=== PATIENT | female | born 1975 | race Caucasian/White ===

== ENCOUNTER → 2017-10-18 | Day surgery (SDC) | payer MEDICAID ==
[~2017-10-18] VITALS: Ht 157.5 cm; Wt 84.5 kg
[~2017-10-18] MED LIST: ACETAMINOPHEN/HYDROcodone 325 MG/5 MG TAB PO PRN; CHLORHEXIDINE GLUCONATE 2 % 1 PACK (2 CLOTHS) TOPICAL PRN; CHLORHEXIDINE GLUCONATE 4% SOLN 120 ML BTL TOPICAL SCH; DEXAMETHASONE SOD PHOS 4 MG/ML VIAL IV ONE; HYDROmorphone HCL PF 2 MG/ML VIAL ONE; KETOROLAC TROMETHAMINE 30 MG/ML (IVP) VIAL IM PRN; KETOROLAC TROMETHAMINE 30 MG/ML (IVP) VIAL IV PUSH ONE; LACTATED RINGER'S 1000 ML IV PRN; LIDOCAINE HCL 1% PF 5 ML SYRINGE OTHER ONE; METOPROLOL TARTRATE 25 MG TAB PO PRN; MORPHINE SULFATE 8 MG/ML INJ ONE; ONDANSETRON HCL 4 MG/2 ML VIAL IV PUSH ONE; ONDANSETRON HCL 4 MG/2 ML VIAL IV PUSH PRN; POVIDONE IODINE 5% (ANTISEPSIS KIT) 4 APPLICATIONS EACH NARE PRN; PROPOFOL 200 MG/20 ML AMP IV ONE; SODIUM CHLORID 0.9% 500 ML IV PRN
--- NOTE | 2017-10-18 13:58 | MP ---
cc: Yamil Morrison MD DATE OF OPERATION: 10/18/2017 DATE OF OPERATION: 10/18/2017 SURGEON: Yamil Morrison MD PREOPERATIVE DIAGNOSES: 1. Carpal tunnel syndrome, right wrist. 2. De Quervain's syndrome, right wrist. POSTOPERATIVE DIAGNOSES: 1. Carpal tunnel syndrome, right wrist. 2. De Quervain's syndrome, right wrist. PROCEDURE PERFORMED: 1. Carpal tunnel release, right wrist. 2. De Quervain's release, right wrist. DETAILS OF PROCEDURE: The patient was placed on the operating room stretcher in the supine position, and adequate general anesthesia was administered by the anesthesiologist. The patient's right wrist and hand were by prepping and draping in the usual sterile fashion. A timeout was called, and the patient's name, procedure and location were fully confirmed. An Esmarch bandage was used and applied to the right upper extremity and a pneumatic tourniquet was inflated to a pressure of 200 at the level of the proximal arm. A transverse incision was made over the first extensor compartment of the wrist and a curved separate incision was made over the carpal tunnel. Subcutaneous tissue of the carpal tunnel was released and using sharp and blunt dissection, we did encounter a very large inflated vein, which was electrocauterized. Dissection was carried down to a very thickened and tight transverse carpal ligament, which was approached proximal to distal, with a longitudinal incision made through it, protecting the underlying median nerve, which was extremely flattened and compressed. The release was extended proximally and distally without complication. Attention was then turned to the first extensor compartment, where the transverse incision was created and the sharp and blunt dissection was again carried out, exposing the underlying tendon sheath with all care taken to avoid any excessive retraction or injury to the superficial radial nerve. A longitudinal incision was made through the sheath and the tendon was released fully. Both wounds were then closed with interrupted simple suture of 4-0 nylon. Xeroform gauze was applied over both wounds and a bulky hand dressing applied over this. Sponge count, needle counts and instrument counts were reportedly correct x 2. The estimated blood loss was nil. The tourniquet was deflated and examination of the fingers and thumb revealed adequate return of circulation. The procedure was tolerated well, and the patient went to the recovery room in satisfactory condition. MD MARBIN Dorsey , 01:29 PM , 01:56 PM
[2017-10-18 15:10] VITALS: BP 116/79; PULSE 72; RESP 16; TEMP 98.1; O2SAT 96
== END | disposition home or self-care (01) ==
LOC: PHSDC 11:09
PROVIDERS: ATTEND Orthopaedic Surgery
DX: G56.01 Carpal tunnel syndrome, right upper limb (principal); E34.51 Complete androgen insensitivity syndrome
CPT/HCPCS: 01810; 25000; 64721; J1100; J1170; J1885; J2270; J2405; J3010; J7120